=== PATIENT | male | born 1985 | race Caucasian/White ===

== ENCOUNTER → 2017-10-20 | Outpatient (CLI) | payer OTHER ==
--- NOTE | 2017-10-20 16:48 | CONS ---
CONSULTATION REASON FOR CONSULTATION: Consultation for sleep apnea. PRIMARY CARE PHYSICIAN: Dr. Nimesh Hinds. HISTORY OF PRESENT ILLNESS: 32-year-old male patient was initially suspected obstructive sleep apnea based on a routine evaluation was done at [facility] as part of a DOC certification requirement. The patient subsequently went to [facility] and he was granted the certificate without a sleep study. Never the less, the concern of sleep apnea remained with the patient. For that reason, he came in to me. He is snoring. He has never been told he quits breathing. He goes to bed around 10:00 pm, wakes up 5:45 am in the morning. 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 He works for [employer] and he drives 1 hour at most to different jobs. Never falls asleep while driving. Never been involved in a motor vehicle accident because of feeling drowsy or sleepy. Corona Score is at 6. He is coming in for further advice and evaluation. PAST MEDICAL HISTORY: Depression. PAST SURGICAL HISTORY: Negative. ALLERGIES: Not known. MEDICATIONS: Wellbutrin SR 150 mg twice a day. SOCIAL HISTORY: The patient has smoked half pack of cigarettes a day. No history of alcohol. No history of IV drugs. FAMILY HISTORY: Negative for sleep apnea in both parents. REVIEW OF SYSTEMS: 12-point review of system was done. No insomnia. No nocturia. No grinding of the teeth. No anxiety or panic attacks or claustrophobia. No palpitations. No nocturnal heartburn. No restlessness in the lower extremities. He has history of depression well treated for now. No anxiety. No sexual dysfunction. No sleep paralysis, hallucinations or cataplexy. PHYSICAL EXAMINATION: BP is 132/79, pulse 84, respirations 16, temp 97.8. Saturation 96% on room air. Weight is 261. Height is 6 feet 0 inches. BMI 35.3, neck size 17 and 3/4 of an inch. GENERAL APPEARANCE: Calm, comfortable, in no acute distress. Head is atraumatic, normocephalic. NECK: Supple. Mallampati class 2. The patient has tonsillar enlargement bilaterally. LUNGS: Clear to auscultation. HEART: Sounds regular rate and rhythm. Normal S1, S2. No S3, S4. No murmurs. ABDOMEN: Soft, nontender. No organomegaly. EXTREMITIES: No edema. No cyanosis or clubbing. NEUROLOGIC: The patient is alert and oriented x3. There is no focal neurological deficits. Psychiatric: Appropriate mood and affect. Skin is negative for any wounds or ulceration. IMPRESSION: 1. Obstructive sleep apnea, clinically suspected, under investigation. 2. Loud snoring. 3. vp site. 4. Depression. PLAN: Overall suspicion is low for sleep apnea. We will proceed with a home sleep study as a screening evaluation for MONSE and treat accordingly. Meanwhile encourage weight loss and optimize sleep hygiene measures. Will follow. MMODL / IJN: [id number] /
== END | disposition home or self-care (01) ==
LOC: SLEEP 13:42
PROVIDERS: ATTEND Internal Medicine Critical Care Medicine
DX: R06.83 Snoring (principal); F32.9 Major depressive disorder, single episode, unspecified; F17.210 Nicotine dependence, cigarettes, uncomplicated; Z79.899 Other long term (current) drug therapy
CPT/HCPCS: 99211